=== PATIENT | female | born 1995 | race Caucasian/White ===

== ENCOUNTER 2020-09-06 08:51 | Emergency (ER) | payer BC ==
[2020-09-06] MEDS ORDERED: VYVANSE30 MG PO (09:09)
[2020-09-06] MEDS ORDERED: PROAIR HFA0.09 MG/AC IH (09:09)
[2020-09-06 10:09] VITALS: BP 122/86
== END 2020-09-06 10:10 | disposition home or self-care (01) ==
LOC: ED 08:51
DX: S93.402A Sprain of unspecified ligament of left ankle, initial encounter (principal); F90.9 Attention-deficit hyperactivity disorder, unspecified type; Z79.51 Long term (current) use of inhaled steroids; Z79.899 Other long term (current) drug therapy; W10.8XXA Fall (on) (from) other stairs and steps, initial encounter; Y92.009 Unspecified place in unspecified non-institutional (private) residence as the place of occurrence of the external cause; Y99.0 Civilian activity done for income or pay
CPT/HCPCS: 15969; L4386

== ENCOUNTER → 2020-09-15 | Outpatient (CLI) | payer BC ==
[2020-09-06 10:09] VITALS: BP 122/86
[~2020-09-15] MED LIST: PROAIR HFA0.09 MG/AC IH; VYVANSE30 MG PO
== END ==
LOC: LAB 11:34
DX: Z20.822 Contact with and (suspected) exposure to COVID-19 (principal)

== ENCOUNTER → 2020-11-10 | Outpatient (CLI) | payer BC ==
[2020-11-10 15:35] LABS: BASO # 0.02 (0.02-0.10); EOS # 0.13 (0.04-0.40); EOS % 1.6 % (1.0-5.0); HEMATOCRIT 42.2 % (37.0-47.0); HEMOGLOBIN 13.8 g/dL (12.5-16.0); LYMPH# 1.92 (1.50-4.00); MEAN CELL VOLUME 91 fl (78-100); MEAN CORPUSCULAR HEMOGLOBIN 30 pg (27-31); MEAN CORPUSCULAR HGB CONC 33 g/dL (33-37); MEAN PLATELET VOLUME 9.7 fl (7.4-10.4); MONO # 0.47 (0.20-0.80); NEU # 5.53 (1.40-6.50); PLATELET COUNT 356 K/mm3 (130-400); RED BLOOD COUNT 4.65 M/mm3 (4.10-5.30); RED CELL DISTRIBUTION WIDTH 11.8 % (11.5-14.5); WHITE BLOOD COUNT 8.1 K/mm3 (4.8-10.8)
[2020-11-10 15:42] LABS: POTASSIUM 4.1 mmol/L (3.5-5.1)
[2020-11-10 15:43] LABS: ALBUMIN 4.2 g/dL (3.5-5.0)
[2020-11-10 15:44] LABS: CALCIUM 9.2 mg/dL (8.3-10.5)
[2020-11-10 15:45] LABS: TOTAL PROTEIN 7.5 g/dL (6.4-8.3)
[2020-11-10 15:47] LABS: TOTAL BILIRUBIN 0.3 mg/dL (0.2-1.2)
== END ==
LOC: LAB 15:22
PROVIDERS: Physician Assistant
DX: Z13.1 Encounter for screening for diabetes mellitus (principal); Z00.00 Encounter for general adult medical examination without abnormal findings

== ENCOUNTER → 2022-02-04 | Outpatient (CLI) | payer MEDICAID ==
[2022-02-04 12:27] LABS: BASO # 0.02 K/mm3 (0.02-0.10); EOS # 0.32 K/mm3 (0.04-0.40); EOS % 4.5 % (1.0-5.0); HEMATOCRIT 42.1 % (37.0-47.0); HEMOGLOBIN 13.7 g/dL (12.5-16.0); LYMPH# 1.47 K/mm3 (1.50-4.00); MEAN CELL VOLUME 90 fl (78-100); MEAN CORPUSCULAR HEMOGLOBIN 29 pg (27-31); MEAN CORPUSCULAR HGB CONC 33 g/dL (33-37); MEAN PLATELET VOLUME 10.1 fl (7.4-10.4); MONO # 0.56 K/mm3 (0.20-0.80); NEU # 4.82 K/mm3 (1.40-6.50); PLATELET COUNT 314 K/mm3 (130-400); RED CELL DISTRIBUTION WIDTH 11.7 % (11.5-14.5); WHITE BLOOD COUNT 7.2 K/mm3 (4.8-10.8)
[2022-02-04 12:38] LABS: POTASSIUM 4.1 mmol/L (3.5-5.1)
[2022-02-04 12:39] LABS: ALBUMIN 4.4 g/dL (3.5-5.0)
[2022-02-04 12:40] LABS: CALCIUM 9.5 mg/dL (8.3-10.5)
[2022-02-04 12:41] LABS: TOTAL PROTEIN 7.7 g/dL (6.4-8.3)
[2022-02-04 12:43] LABS: TOTAL BILIRUBIN 0.9 mg/dL (0.2-1.2)
== END ==
LOC: LAB 11:54
PROVIDERS: Physician Assistant
DX: Z13.220 Encounter for screening for lipoid disorders (principal); Z13.1 Encounter for screening for diabetes mellitus; Z13.29 Encounter for screening for other suspected endocrine disorder; J30.2 Other seasonal allergic rhinitis; K90.9 Intestinal malabsorption, unspecified; J45.20 Mild intermittent asthma, uncomplicated; F90.9 Attention-deficit hyperactivity disorder, unspecified type; F41.8 Other specified anxiety disorders

== ENCOUNTER → 2022-04-13 | Outpatient (CLI) | payer MEDICAID ==
[2022-04-13 14:12] LABS: BASO # 0.03 K/mm3 (0.02-0.10); EOS # 0.04 K/mm3 (0.04-0.40); EOS % 0.4 % (1.0-5.0); HEMATOCRIT 40.8 % (37.0-47.0); HEMOGLOBIN 13.5 g/dL (12.5-16.0); MEAN CELL VOLUME 91 fl (78-100); MEAN CORPUSCULAR HEMOGLOBIN 30 pg (27-31); MEAN CORPUSCULAR HGB CONC 33 g/dL (33-37); MONO # 0.77 K/mm3 (0.20-0.80); NEU # 9.16 K/mm3 (1.40-6.50); PLATELET COUNT 287 K/mm3 (130-400); RED CELL DISTRIBUTION WIDTH 12.2 % (11.5-14.5); WHITE BLOOD COUNT 11.4 K/mm3 (4.8-10.8)
[2022-04-13 14:18] LABS: POTASSIUM 3.8 mmol/L (3.5-5.1)
[2022-04-13 14:19] LABS: CALCIUM 9.3 mg/dL (8.3-10.5)
[2022-04-13 14:20] LABS: TOTAL PROTEIN 7.4 g/dL (6.4-8.3)
[2022-04-13 14:22] LABS: TOTAL BILIRUBIN 0.5 mg/dL (0.2-1.2)
== END ==
LOC: LAB 13:53
PROVIDERS: Physician Assistant
DX: Z00.00 Encounter for general adult medical examination without abnormal findings (principal); Z13.29 Encounter for screening for other suspected endocrine disorder; J45.20 Mild intermittent asthma, uncomplicated; K90.9 Intestinal malabsorption, unspecified; F41.8 Other specified anxiety disorders; F90.9 Attention-deficit hyperactivity disorder, unspecified type; E53.8 Deficiency of other specified B group vitamins; J01.90 Acute sinusitis, unspecified; R74.01 Elevation of levels of liver transaminase levels